=== PATIENT | male | born 1960 | race Caucasian/White ===

== ENCOUNTER 2020-07-10 11:29 | Outpatient (CLI) | payer BC, SELFPAY ==
[2020-07-10 11:43] LABS: Basophils Absolute Auto 0.04 K/mm3 (0.00-0.10); Basophils Percent Auto 0.7 % (0.0-1.0); Eosinophils Absolute Auto 0.11 K/mm3 (0.02-0.50); Eosinophils Percent Auto 1.8 % (1.0-6.0); Hematocrit 45.2 % (40.0-54.0); Hemoglobin 14.6 g/dL (14.0-18.0); Immature Granulocyte Absolute 0.01 K/mm3 (0.00-0.00); Immature Granulocyte Percent A 0.2 % (0.0-0.0); Lymphocytes Absolute Auto 1.82 K/mm3 (1.10-4.50); Lymphocytes Percent Auto 30.6 % (18.0-42.0); Mean Corpuscular HGB Conc 32.3 g/dL (32.0-36.0); Mean Corpuscular Hemoglobin 29.2 pg (27.0-31.0); Mean Corpuscular Volume 90.4 fL (78.0-102.0); Mean Platelet Volume 11.3 fl (8.7-11.0); Monocytes Absolute Auto 0.46 K/mm3 (0.10-0.90); Monocytes Percent Auto 7.7 % (2.0-11.0); Neutrophils Absolute Auto 3.5 K/mm3 (1.7-7.2); Platelet Count Result 214 K/mm3 (150-420)
[2020-07-10 12:16] LABS: Add Urine Microscopic? NO; Appearance Urine Clear (Clear); Bilirubin Urine Negative (Negative); Blood Urine Negative (Negative); Color Urine Yellow (Yellow); Glucose Urine UA Negative (Negative); Ketones Urine Negative (Negative); Leukocyte Esterase Ur Negative (Negative); Nitrate Urine Negative (Negative); Protein Urine Negative (Negative); Specific Grav Ur 1.025 (1.010-1.020); Urobilinogen Urine 0.2 mg/dL (0.2-1.0)
[2020-07-10 12:55] LABS: Alanine Aminotransferase 41 U/L (16-63); Albumin Level 4.3 g/dL (3.4-5.0); Alkaline Phosphatase 74 U/L (46-116); Anion Gap 5 mmol/L (8-16); Aspartate Amino Transferase 35 U/L (15-37); Bilirubin,Total 0.9 mg/dL (0.00-1.00); Blood Urea Nitrogen 15 mg/dL (7-18); Calcium 9.3 mg/dL (8.5-10.1); Carbon Dioxide 31 mmol/L (21-32); Chloride 104 mmol/L (98-108); Cholesterol 191 mg/dL (0-200); Estimated Glomerular Filt Rate > 60; Glucose 96 mg/dL (70-99); HDL Direct 75 mg/dL (40-60); LDL Cholesterol Calculated 102 mg/dL (<130); Osmolality Calculated 290 mOsm/kg (285-295); Potassium 4.4 mmol/L (3.5-5.1); Prostate Specific Antigen 0.6 ng/mL (< OR = 4.0); Sodium 140 mmol/L (136-145); Total Protein 7.6 g/dL (6.4-8.2); Triglycerides 72 mg/dL (0-150)
== END 2020-07-10 11:30 | disposition home or self-care (01) ==
PROVIDERS: PCP Internal Medicine; Visit Provider Internal Medicine
DX: Z00.00 Encounter for general adult medical examination without abnormal findings (principal); Z12.5 Encounter for screening for malignant neoplasm of prostate
CPT/HCPCS: 36415; 80053; 80061; 81003; 84153; 85025; G0103

== ENCOUNTER 2021-06-27 10:49 | Outpatient (CLI) | payer BC, SELFPAY ==
--- NOTE | ~2021-06-27 | XR_ITS ---
XR chest 2V DATE: 06/27/2021 11:24 INDICATION: Asbestos exposure. Weight loss. TECHNIQUE: PA and lateral views COMPARISON: 12/22/2018 2 view chest FINDINGS: Normal heart size. No hilar or mediastinal enlargement. The lungs are hyperinflated but clear of infiltrate or consolidation. No pleural effusion or calcifie d pleural plaques are noted. No pulmonary vascular congestion or pneumothorax. Degenerative spurring of the thoracic spine. IMPRESSION: Bilateral hyperinflation; no active cardiopulmonary disease No calcified pleural plaques are noted in this patient with history of asbestos exposure Reviewed, dictated and finalized at location A.
[2021-06-27 11:03] LABS: Basophils Absolute Auto 0.02 K/mm3 (0.00-0.10); Basophils Percent Auto 0.5 % (0.0-1.0); Eosinophils Absolute Auto 0.06 K/mm3 (0.02-0.50); Eosinophils Percent Auto 1.4 % (1.0-6.0); Hematocrit 44.2 % (40.0-54.0); Hemoglobin 14.4 g/dL (14.0-18.0); Immature Granulocyte Absolute 0.01 K/mm3 (0.00-0.00); Immature Granulocyte Percent A 0.2 % (0.0-0.0); Lymphocytes Absolute Auto 1.48 K/mm3 (1.10-4.50); Lymphocytes Percent Auto 33.5 % (18.0-42.0); Mean Corpuscular HGB Conc 32.6 g/dL (32.0-36.0); Mean Corpuscular Volume 89.1 fL (78.0-102.0); Monocytes Absolute Auto 0.34 K/mm3 (0.10-0.90); Monocytes Percent Auto 7.7 % (2.0-11.0); Neutrophils Absolute Auto 2.5 K/mm3 (1.7-7.2); Neutrophils Percent Auto 56.7 % (50.0-70.0); Platelet Count Result 213 K/mm3 (150-420); Red Blood Count 4.96 M/mm3 (4.70-6.10); White Blood Count 4.4 K/mm3 (4.8-10.8)
[2021-06-27 11:11] LABS: Add Urine Microscopic? YES; Appearance Urine Clear (Clear); Bilirubin Urine Negative (Negative); Blood Urine Negative (Negative); Color Urine Light Yellow (Yellow); Glucose Urine UA Negative (Negative); Ketones Urine Negative (Negative); Leukocyte Esterase Ur Trace (Negative); Nitrate Urine Negative (Negative); Protein Urine Negative (Negative); Urobilinogen Urine 0.2 mg/dL (0.2-1.0); pH Urine 6.5 (5.0-8.0)
[2021-06-27 11:24] LABS: Bacteria Urine None seen /hpf; RBC Urine None seen /hpf (0-2); Squamous Epithelial Cell Urine Rare /hpf (Few); WBC Urine None seen /hpf (0-3)
[2021-06-27 12:32] LABS: Alanine Aminotransferase 45 U/L (16-63); Albumin Level 4.2 g/dL (3.4-5.0); Alkaline Phosphatase 72 U/L (46-116); Anion Gap 6 mmol/L (8-16); Aspartate Amino Transferase 24 U/L (15-37); Bilirubin,Total 0.9 mg/dL (0.00-1.00); Blood Urea Nitrogen 13 mg/dL (7-18); Calcium 9.1 mg/dL (8.5-10.1); Carbon Dioxide 32 mmol/L (21-32); Chloride 102 mmol/L (98-108); Cholesterol 162 mg/dL (0-200); Estimated Glomerular Filt Rate > 60; Glucose 105 mg/dL (70-99); HDL Direct 70 mg/dL (40-60); LDL Cholesterol Calculated 80 mg/dL (<130); Osmolality Calculated 290 mOsm/kg (285-295); Potassium 4.4 mmol/L (3.5-5.1); Prostate Specific Antigen 0.5 ng/mL (< OR = 4.0); Sodium 140 mmol/L (136-145); Thyroid Stimulating Hormone 0.81 uIU/mL (0.36-3.74); Total Protein 7.5 g/dL (6.4-8.2); Triglycerides 60 mg/dL (0-150)
== END 2021-06-27 10:50 | disposition home or self-care (01) ==
LOC: CHSLAB 10:51
PROVIDERS: PCP Internal Medicine; Visit Provider Internal Medicine
DX: Z00.00 Encounter for general adult medical examination without abnormal findings (principal); Z77.090 Contact with and (suspected) exposure to asbestos; R63.4 Abnormal weight loss; Z12.5 Encounter for screening for malignant neoplasm of prostate
CPT/HCPCS: 36415; 71046; 80053; 80061; 81001; 84153; 84443; 85025; G0103

== ENCOUNTER 2022-07-10 10:23 | Outpatient (CLI) | payer BC, SELFPAY ==
--- NOTE | ~2022-07-10 | XR_ITS ---
EXAMINATION: XR chest 2V 07/10/2022 10:37 INDICATION: History of asbestos exposure PROCEDURE: 2 view chest COMPARISON: Comparison to multiple prior studies sequentially, with oldest reviewed study dated 05/25. FINDINGS: The lungs are clear. The cardiomediastinal silhouette is within normal limits. There are no pleural effusions. There is no pneumothorax suspected. IMPRESSION: 1: NO ACUTE CARDIOPULMONARY DISEASE. Reviewed, dictated and finalized at location B.
== END 2022-07-10 10:24 | disposition home or self-care (01) ==
LOC: CHSIMG 10:25
PROVIDERS: PCP Internal Medicine; Visit Provider Internal Medicine
DX: Z77.090 Contact with and (suspected) exposure to asbestos (principal)
CPT/HCPCS: 71046

== ENCOUNTER 2022-08-20 00:34 | Day surgery (SDC) | payer BC, SELFPAY ==
[2022-08-12 08:47] VITALS: BMI 23.8
[2022-08-20 11:09] VITALS: BP 111/81; PULSE 62; RESP 19; TEMP 36.4; O2SAT 100
[2022-08-20] MEDS: LACTATED RINGERS 1,000 ML 150 ML IV CONT (11:18)
--- NOTE | 2022-08-20 11:31 | P.HP_ITS ---
History of Present Illness History of Present Illness Consent: Risks, benefits, and alternatives have been discussed and questions answered. Patient agrees to proceed with procedure. Chief complaint: occult GI bleed Narrative: Markus Silva is a 62 year old male Presents for screening colonoscopy. Patient has a history of colon polyps in 2018 had an adenomatous polyp removed from the colon. Family history is significant his father had colon polyps requ ired surgery. Patient reports his current weight appetite and bowel movements are normal. Patient denies abdominal pain. He has had no bleeding. Recently screening stool test was Hemoccult positive despite normal appearance to his stools. Patient presents today for colonoscopy. Review of Systems Review of Systems: Review of systems noncontributory. [facility] Social History Social History Smoking packs per day: 1 Smoking cigarettes per day: 20.0 Years smoked: 12 Smoking pack-years: 12.00 Smoking status: Former smoker Tobacco type: cigarettes Alcohol intake: never Substance use: current Substance use type: marijuana Other substance usage details: daily use Living arrangements: with family Spiritual care concerns: No Meds Home Medications and Allergies Home Medications Medication Instructions Recorded Confirmed Type aspirin 81 mg tablet 81 mg PO 3XW 08/12/22 08/12/22 History magnesium 250 mg tablet 250 mg PO DAILY 08/12/22 08/12/22 History pravastatin 20 mg tablet 20 mg PO DAILY 08/12/22 08/12/22 History Allergies Allergy/AdvReac Type Severity Reaction Status Date / Time No Known Allergies Allergy Verified 08/20/22 11:07 Vital Signs Vital Signs - 24 hr 08/20/22 11:09 Temperature 97.6 F Pulse Rate 62 Respiratory Rate 19 Blood Pressure 111/81 Pulse Oximetry 100 Oxygen Delivery Room Air Exam Narrative: Physical exam reveals patient to be alert. Vital signs stable. HEENT exam is unremarkable. Patient is anicteric. Lungs are clear to auscultation and percussion. Heart is without murmur or extra sounds. Abdomen bowel sounds present soft nontender with no organomegaly. Digital external rectal exam is normal. Assessment and Plan Assessment and plan (1) Occult blood in stools: Code(s): R19.5 - Other fecal abnormalities Status: Acute Assessment and Plan: Patient recently found to have occult blood in stool. This is 1 of the reasons for colonoscopy today (2) History of colon polyps: Code(s): Z86.010 - Personal history of colonic polyps Status: Acute Assessment and Plan: patient had an adenomatous colon polyp removed from the colon 2017. Plan for follow-up colonoscopy at 5 year intervals in the future. (3) Family history of colonic polyps: Code(s): Z83.71 - Family history of colonic polyps Status: Acute Assessment and Plan: Patient's father had colon polyps. Plan for surveillance colonoscopy at 5 year intervals.
[2022-08-20 13:06] VITALS: BP 98/65; PULSE 62; RESP 20; O2SAT 98
[2022-08-20 13:16] VITALS: BP 112/69; PULSE 67; RESP 24; O2SAT 100
[2022-08-20 13:26] VITALS: BP 122/70; PULSE 53; RESP 16; O2SAT 100
== END 2022-08-20 13:34 | disposition home or self-care (01) ==
PROVIDERS: PCP Internal Medicine; Visit Provider Internal Medicine Gastroenterology
PROC: 0DJD8ZZ Inspection of Lower Intestinal Tract, Via Natural or Artificial Opening Endoscopic (ICD-10-PCS; CPT 45378; principal; 2022-08-20 12:30)
DX: R19.5 Other fecal abnormalities (principal); D12.0 Benign neoplasm of cecum; K57.32 Diverticulitis of large intestine without perforation or abscess without bleeding; K64.8 Other hemorrhoids; Z86.010 Personal history of colon polyps; Z83.71 Family history of colonic polyps; Z87.891 Personal history of nicotine dependence
CPT/HCPCS: 45385; 88305; J2704; J7120

== ENCOUNTER 2023-07-08 11:25 | Outpatient (CLI) | payer MEDICARE, SELFPAY ==
--- NOTE | ~2023-07-08 | XR_ITS ---
EXAMINATION: XR chest 2V 07/08/2023 11:46 INDICATION: Asbestos exposure. PROCEDURE: 2 view chest COMPARISON: Comparison to multiple prior studies sequentially, with oldest reviewed study dated 05/24. FINDINGS: The lungs are clear. The cardiomediastinal silhouette is within normal limits. There are no pleural effusions. There is no pneumothorax suspected. IMPRESSION: 1: NO ACUTE CARDIOPULMONARY DISEASE. Reviewed, dictated and finalized at location L.
== END 2023-07-08 11:26 | disposition home or self-care (01) ==
PROVIDERS: PCP Internal Medicine; Visit Provider Internal Medicine
DX: Z77.090 Contact with and (suspected) exposure to asbestos (principal)
CPT/HCPCS: 71046

== ENCOUNTER 2025-07-09 12:07 | Outpatient (CLI) | payer MEDICARE, SELFPAY ==
--- NOTE | ~2025-07-09 | XR_ITS ---
XR lumbar spine 2-3V Indication: CHEST PAIN, BACK PAIN Comparison: None Findings: The vertebral heights are intact. No fracture or subluxation. Minimal loss of disc height throughout Soft tissues unremarkable Impression: No acute abnormality. Reviewed, dictated and finalized at location P. Impression: No acute abnormality.
--- NOTE | ~2025-07-09 | XR_ITS ---
EXAMINATION: XR chest 2V 07/09/2025 12:35 INDICATION: Chest pain and back pain PROCEDURE: 2 view chest COMPARISON: Comparison to multiple prior studies sequentially, with oldest reviewed study dated 12/22/2018. FINDINGS: The lungs are clear. The cardiomediastinal silhouette is within normal limits. There are no pleural effusions. There is no pneumothorax suspected. IMPRESSION: 1: NO ACUTE CARDIOPULMONARY DISEASE. Reviewed, dictated and finalized at location B.
--- OUTSIDE RECORDS SUMMARY | 2025-07-09 13:33 | XMS_ITS | Clinical Summary ---
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 Role Phone Lefty Dickson MD Primary Care Provider [phone] Allergies No known active allergies Medications aspirin 81 mg enteric coated tablet Take 1 tablet (81 mg total) by mouth daily 3 a week Active iron 18 mg tablet Take 1 tablet by mouth daily Active magnesium gluconate 200 mg tabletIndication s:hypomagnesemia 1 tablet (200 mg total) daily Active multivitamin with minerals tablet Take 1 tablet by mouth daily Active pravastatin (PRAVACHOL) 20 mg tablet 1 tablet (20 mg total) daily 12/12/2018 Active Active Problems Problem Noted Date Diagnosed Date Paroxysmal atrial fibrillation 02/16/2019 Family History Relation Name Status Comments Father (Age 87) Mother Alive Social History Tobacco Use Types Packs/Day Years Used Date Smoking Tobacco: Never Smokeless Tobacco: Never Tobacco Cessation:Counseling Given: Not Answered Alcohol Use Standard Drinks/Week Comments Not Currently 0 (1 standard drink = 0.6 oz pur e alcohol) AUDIT-C Answer Date Recorded Frequency of Alcohol Consumption Never 02/16/2019 Average Number of Drinks Not on file 019 Frequency of Binge Drinking Not on file 02/2019 Personal Safety Answer Date Recorded Getting School Help Needed Not on file Sex and Gender Information Value Date Recorded Sex Assigned at Not on file Legal Sex Male 12:48 AM ETL LEAD Gender Identity Not on file Sexual Orientation Not on file Obstetrics History Last Filed Vital Signs Vital Sign Reading Time Taken Comments Blood Pressure 102/68 03/25/2023 3:35 PM CDT Pulse 52 03/25/2023 3:35 PM CDT Temperature - - Respiratory Rate - - Oxygen Saturation 97% 03/25/2023 3:35 PM CDT Inhaled Oxygen Concentration - - Weight 79.4 kg (175 lb) 03/25/2023 3:35 PM CDT Height 182.9 cm (6') 03/25/2023 3:35 PM CDT Body Mass Index 23.73 03/25/2023 3:35 PM CDT Plan of Treatment Health Maintenance Due Date Last Done Comments Colon Cancer Screening-Colonoscopy 1958 Depression Screening 1958 Fall Risk Assessment 1958 Hepatitis C Screening 1960 Prostate Cancer Screening-PSA 1958 Hepatitis B Screening 1976 Pneumococcal vaccine 65+ (1 of 1 - PCV) 2008 DTaP/Tdap/Td Vaccine (2 - Td or Tdap) 04/27/2022 04/27/2012 Abdominal Aortic Aneurysm (A AA) Screen 2023 Well Visit 65+ 2023 Influenza Vaccine (#1) 2025 0, 06/27/2019, 06/29/2018, Additional history exists Zoster Vaccine Completed 09/09/2020, 07/10/2020 Insurance [employer] [facility] Care 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
== END 2025-07-09 12:08 | disposition home or self-care (01) ==
PROVIDERS: PCP Internal Medicine; Visit Provider Internal Medicine
DX: M54.50 Low back pain, unspecified (principal); R07.9 Chest pain, unspecified
CPT/HCPCS: 71046; 72100

== ENCOUNTER 2025-07-12 15:00 | Outpatient (RCR) | payer MEDICARE, SELFPAY ==
--- NOTE | 2025-07-12 16:01 | OPREHPOC ---
Outpatient Therapy Plan of Care This is a Multidisciplinary Plan of Care that may contain components documented by all disciplines (PT, OT, and ST.) PT Problem 1 PT Problem #1 Knowledge Deficit PT Goal 1 Goal / Goal Update independent and compliant with HEP Target Visit 6 PT Problem 2 PT Problem #2 Pain PT Goal 1 Goal / Goal Update decrease pain at worst to 3/10 or less in the lower back Target Visit 12 PT Problem 3 PT Problem #3 Impaired Strength PT Goal 1 Goal / Goal Update improve bilateral hip strength to 4+/5 or better overall patient to display 4/5 or better core strength Target Visit 12 PT Problem 4 PT Problem #4 Impaired Functional Mobility PT Goal 1 Goal / Goal Update oswestry to display less than 20% functional deficits patient to safely squat and lift 30lbs from floor to waist patient to tolerate 45 minutes of activity without rest Target Visit 12
--- NOTE | 2025-07-12 16:01 | PTOPEVAL1 ---
Assessment and note entered by JT File, PT Evaluation Information Assessment Status Evaluation ICD-10 Condition Codes (PT) Pain in low back M54.50 Onset 07/09/25 Subjective Information patient reports he is having pain in the lower back. he reports he injured the back years ago at work. he reports he would routinely have flare ups in the mm's of the lower back with work and prolonged activities. he reports now, his pain is even increased with just bending forward and simple movements. he reports he has no NTB in the LE's. he reports he has had xrays, and was told he has arthritis of the lower back. Reported Pain Level Pain Score 3: Self Report Assessment PT Clinical Summary mr. lennon is a pleasant 65 yo man who presents to skilled PT services for evaluation and treatment of lower back pain. he display signs and symptoms consistent with lumbar DDD. he displays deficits in L more than R hip and strength, flexibility of the hips, core strength, and functional activity performance. continued skilled PT is indicated to improve his objective/ functional deficits and progress towards a return to his prior level functional activity performance and quality of life. Plan of Care Interventions Electrical Stimulation,Hot Pack/Cold Pack,Manual Therapy,Neuro Re-education,Patient/Caregiver Education,Therapeutic Activities,Therapeutic Exercise PT Services Indicated Yes Treatment Frequency and 2x weekly for 12 visits Duration These treatments will address the objective and functional deficits as defined above. The patient will be advanced safely and appropriately in order for the patient to progress towards his/her prior level of function. Additional exercises will be introduced and as well as a comprehensive home exercise program upon discharge, if needed, ?to ensure carryover of functional gains achieved in the clinic. This treatment plan has been reviewed and agreement upon by the patient.
--- NOTE | 2025-08-23 14:53 | OPREHPOC ---
Outpatient Therapy Plan of Care This is a Multidisciplinary Plan of Care that may contain components documented by all disciplines (PT, OT, and ST.) PT Problem 1 PT Problem #1 Knowledge Deficit PT Goal 1 Goal / Goal Update independent and compliant with HEP Target Visit 6 Progress Met PT Problem 2 PT Problem #2 Pain PT Goal 1 Goal / Goal Update decrease pain at worst to 3/10 or less in the lower back Target Visit 12 Progress Met PT Problem 3 PT Problem #3 Impaired Strength PT Goal 1 Goal / Goal Update improve bilateral hip strength to 4+/5 or better overall patient to display 4/5 or better core strength Target Visit 12 PT Problem 4 PT Problem #4 Impaired Functional Mobility PT Goal 1 Goal / Goal Update oswestry to display less than 20% functional deficits patient to safely squat and lift 30lbs from floor to waist. met (32.5lbs) patient to tolerate 45 minutes of activity without rest. met Target Visit 12
--- NOTE | 2025-08-23 14:53 | PTOPPROGNS ---
Assessment and note entered by JT File, PT Evaluation Information Assessment Status Progress ICD-10 Condition Codes (PT) Pain in low back M54.50 Onset 07/09/25 Subjective Information patient reports he feels much better overall. he reports his back pain has been much more managed, and he is compliant with his HEP every day. Assessment PT Clinical Summary mr. gannon presents to skilled PT today for his 10th skilled PT visit. he displays no pain today, and low pain at worst in the last few weeks. we have progressed core and balance training over the last few weeks without issues. continued skilled PT is indicated to achieve his remaining objective /functional deficits and return to his prior level functional activity performance/quality of life. Plan of Care Interventions Electrical Stimulation,Hot Pack/Cold Pack,Manual Therapy,Neuro Re-education,Patient/Caregiver Education,Therapeutic Activities,Therapeutic Exercise PT Services Indicated Yes Treatment Frequency and continue per initial POC Duration These treatments will address the objective and functional deficits as defined above. The patient will be advanced safely and appropriately in order for the patient to progress towards his/her prior level of function. Additional exercises will be introduced and as well as a comprehensive home exercise program upon discharge, if needed, ?to ensure carryover of functional gains achieved in the clinic. This treatment plan has been reviewed and agreement upon by the patient.
--- NOTE | 2025-08-30 16:31 | OPREHPOC ---
Outpatient Therapy Plan of Care This is a Multidisciplinary Plan of Care that may contain components documented by all disciplines (PT, OT, and ST.) PT Problem 1 PT Problem #1 Knowledge Deficit PT Goal 1 Goal / Goal Update independent and compliant with HEP Target Visit 6 Progress Met PT Problem 2 PT Problem #2 Pain PT Goal 1 Goal / Goal Update decrease pain at worst to 3/10 or less in the lower back Target Visit 12 Progress Met PT Problem 3 PT Problem #3 Impaired Strength PT Goal 1 Goal / Goal Update improve bilateral hip strength to 4+/5 or better overall patient to display 4/5 or better core strength Target Visit 12 Progress Met PT Problem 4 PT Problem #4 Impaired Functional Mobility PT Goal 1 Goal / Goal Update oswestry to display less than 20% functional deficits -met patient to safely squat and lift 30lbs from floor to waist. met (32.5lbs) patient to tolerate 45 minutes of activity without rest. met Target Visit 12 Progress Met
--- NOTE | 2025-08-30 16:31 | PTOPDC ---
Assessment and note entered by Stacia Neff, PT Evaluation Information Assessment Status Discharge ICD-10 Condition Codes (PT) Pain in low back M54.50 Onset 07/09/25 Subjective Information Markus reports his back feels really good and he has been independent with his home exercise program. He feels good enough to discharge from PT this date and would like some more exercises to add into his HEP. Reported Pain Level Pain Score 0: Self Report Assessment PT Clinical Summary Mr. Silva has attended 12 skilled PT visits addressing low back pain with excellent progress. He has met all therapeutic goals set for him and will be discharged this date with updated HEP handout given. Plan of Care PT Services Indicated No
== END 2025-08-30 17:04 | disposition home or self-care (01) ==
LOC: CHSPT 15:00
PROVIDERS: PCP Internal Medicine; Visit Provider Internal Medicine
DX: M54.50 Low back pain, unspecified (principal)
CPT/HCPCS: 97014; 97110; 97112; 97161; 97530; G0283